=== PATIENT | male | born 1955 | race Caucasian/White ===

== ENCOUNTER 2016-11-15 07:31 | Day surgery (SDC) | payer OTHER ==
[~2016-11-15] VITALS: Ht 182.9 cm; Wt 82.0 kg
[~2016-11-15 07:31] MED LIST: ASPIRIN325 M3 PO; ASPIRIN81 M1 CH; ATORVASTATIN CA10 M1 PO; BEVESPI AEROS10.7 GM INH; CELEBREX200 M1 PO; IRON18 M1 PO; LASIX20 M1 PO; METOPROLOL SUC200 M1 PO; NAPROXEN SODIU220 M3 PO; OMEPRAZOLE40 M2 PO; PRINIVIL10 M1 PO; ROXICODONE5 M2 PO; TYLENOL EXTRA500 M1 PO; ULTRAM50 M1 PO; [UNRECOGNIZED DRUG - OTHER] PO
[2016-11-15 08:28] LABS: HCT-HEMATOCRIT 30.1 % (36.0-53.5); HGB-HEMOGLOBIN 9.4 gm/dl (13.5-17.0); MCV (MEAN CELL VOLUME) 74.3 fl (82.0-96.0); RED CELL DISTRIBUTION WIDTH 17.9 % (12.4-16.4)
== END 2016-11-15 10:10 ==
LOC: SHSC 07:31 → ENDOS 07:31
PROVIDERS: Anesthesiology
PROC: 0DB98ZX Excision of Duodenum, Via Natural or Artificial Opening Endoscopic, Diagnostic (ICD-10-PCS; principal; 2016-11-15)
PROC: 0DB68ZX Excision of Stomach, Via Natural or Artificial Opening Endoscopic, Diagnostic (ICD-10-PCS; 2016-11-15)
DX: K31.89 Other diseases of stomach and duodenum (principal); I11.0 Hypertensive heart disease with heart failure; I50.9 Heart failure, unspecified; I25.10 Atherosclerotic heart disease of native coronary artery without angina pectoris; E78.5 Hyperlipidemia, unspecified; I42.0 Dilated cardiomyopathy; M19.90 Unspecified osteoarthritis, unspecified site; J44.9 Chronic obstructive pulmonary disease, unspecified; F17.210 Nicotine dependence, cigarettes, uncomplicated; Z79.899 Other long term (current) drug therapy; Z87.11 Personal history of peptic ulcer disease